=== PATIENT | female | born 1960 | race Caucasian/White ===

== ENCOUNTER 2022-05-21 12:13 | Outpatient (CLI) | payer MEDICARE | END 2022-05-21 12:14 | disposition home or self-care (01) | LOC: CSHMAMMO 12:13 | PROVIDERS: ATTEND Family Medicine | DX: Z12.31 Encounter for screening mammogram for malignant neoplasm of breast (principal) | CPT/HCPCS: 77063; 77067 ==

== ENCOUNTER 2024-04-09 12:58 | Outpatient (CLI) | payer OTHER | END 2024-04-09 12:59 | disposition home or self-care (01) | LOC: CSHMAMMO 12:58 | PROVIDERS: ATTEND Family Medicine | DX: Z12.31 Encounter for screening mammogram for malignant neoplasm of breast (principal) | CPT/HCPCS: 77063; 77067 ==